=== PATIENT | female | born 1985 | race Caucasian/White ===

== ENCOUNTER 2017-07-30 10:01 | Emergency (ER) | payer MEDICAID ==
--- NOTE | 2017-07-30 10:31 | ER Document Report ---
ED GI/ - General Chief Complaint: OB Problem (<20wks) Stated Complaint: VAGINAL BLEEDING Time Seen by Provider: 07/30/17 10:21 Mode of Arrival: Ambulatory Information source: Patient, [facility] Records Notes: This 31-year-old female patient comes emergency room for vaginal bleeding that started this morning. No clots, initial bleeding was a little dark and then became a light pinkish red. First positive patency test was done on 07/22/2017. Last normal period was on 05/15/2017. She did bleed one day on 06/15/2017. Past history significant for ectopic last year treated with methotrexate. TRAVEL OUTSIDE OF THE [place] IN LAST 30 DAYS: No - Related Data Allergies/Adverse Reactions: No Known Allergies Allergy (Verified 07/30/17 10:20) Past Medical History - General Information source: Patient, [facility] Records - Social History Smoking Status: Current Every Day Smoker Cigarette use (# per day): Yes - 1 PPD Chew tobacco use (# tins/day): No Smoking Education Provided: No Frequency of alcohol use: None Drug Abuse: None Lives with: Family Family History: Reviewed & Not Pertinent Patient has suicidal ideation: No Patient has homicidal ideation: No - Past Medical History Cardiac Medical History: Reports: Hx Hypertension - borderline Renal/ Medical History: Reports: Hx Ectopic , Hx Kidney Stones Past Surgical History: Reports: Other - IVF egg donation x 3 Review of Systems - Review of Systems Constitutional: No symptoms reported EENT: No symptoms reported Cardiovascular: No symptoms reported Respiratory: No symptoms reported Gastrointestinal: No symptoms reported Genitourinary: No symptoms reported Female Genitourinary: See HPI Musculoskeletal: No symptoms reported Skin: No symptoms reported Hematologic/Lymphatic: No symptoms reported Neurological/Psychological: No symptoms reported Physical Exam - Vital signs Vitals: Temp Pulse Resp BP Pulse Ox 99.1 F 92 16 134/78 H 98 07/30/17 10:05 07/30/17 10:05 07/30/17 10:05 07/30/17 10:05 07/30/17 10:05 Interpretation: Normal - General General appearance: Appears well, Alert In distress: None - HEENT Head: Normocephalic, Atraumatic Eyes: Normal Pupils: PERRL - Respiratory Respiratory status: No respiratory distress - Cardiovascular Rhythm: Regular - Abdominal Inspection: Normal Tenderness: Nontender - Back Back: Normal - Extremities General upper extremity: Normal inspection General lower extremity: Normal inspection - Neurological Neuro grossly intact: Yes - Psychological Associated symptoms: Normal affect, Normal mood - Skin Skin Temperature: Warm Skin Moisture: Dry Skin Color: Normal Course - Vital Signs Vital signs: Temp Pulse Resp BP Pulse Ox 99.1 F 92 16 134/78 H 98 07/30/17 10:05 07/30/17 10:05 07/30/17 10:05 07/30/17 10:05 07/30/17 10:05 - Laboratory Result Diagrams: 07/30/17 10:35 07/30/17 10:35 - Diagnostic Test Radiology reviewed: Reports reviewed - Ultrasound shows a 6 week 6 day intrauterine with a heart rate of 115. The left ovary is not seen. There are no abnormalities noted, specifically no subchorionic bleed. Discharge - Discharge Clinical Impression: with 7 completed weeks gestation, Vaginal bleeding during Condition: Stable Disposition: HOME, SELF-CARE Additional Instructions: Bleeding During Early You have been evaluated for passing blood while . While we take this symptom very seriously, most women with your degree of bleeding will go on to have a perfectly normal baby. At this time, there is no indication that a miscarriage will occur. (A miscarriage occurs when the fetus is abnormal. There is no medicine or treatment to prevent it.) A more serious cause of bleeding is tubal . An ultrasound can show whether the is in the uterus or in the tube. Sometimes in early , no fetus is seen. In this case, careful follow-up, including repeat blood tests and repeat ultrasound, is necessary. You should rest in bed until the symptoms have resolved. Do not douche or have sex for at least a week, or until OK'd by the doctor. Don't use tampons. Call the doctor or return for re-examination if there is an increase in bleeding or cramping, extreme weakness, fainting, new abdominal pain, fever, or passage of tissue. Your ultrasound shows an intrauterine measuring 6 weeks 6 days with a heart rate of 115. There were no abnormalities noted. Follow-up with [facility] next week for recheck. RETURN TO THE EMERGENCY ROOM IF ANY NEW OR WORSENING SYMPTOMS. Referrals: [facility] [Provider Group] - Follow up in 3-5 days
[2017-07-30 11:05] LABS: AMORPHOUS SEDIMENT,URINE TRACE /HPF; APPEARANCE,URINE CLOUDY; BILIRUBIN,URINE NEGATIVE (NEGATIVE); COLOR,URINE YELLOW; GLUCOSE, URINE NEGATIVE (NEGATIVE); KETONES,URINE NEGATIVE (NEGATIVE); LEUKOCYTE ESTERASE,URINE NEGATIVE (NEGATIVE); NITRITE,URINE NEGATIVE (NEGATIVE); PROTEIN,URINE NEGATIVE (NEGATIVE); URINE SPECIFIC GRAVITY 1.018; UROBILINOGEN,URINE NEGATIVE mg/dL (<2.0)
[2017-07-30 11:06] LABS: ABSOLUTE EOSINOPHILS # (AUTO) 0.2 10^3/uL (0.0-0.6); ABSOLUTE LYMPHOCYTES (AUTO) 1.8 10^3/uL (0.5-4.7); ABSOLUTE MONOCYTES (AUTO) 0.6 10^3/uL (0.1-1.4); ABSOLUTE NEUT (AUTO) 5.4 10^3/uL (1.7-8.2); BASOPHILS % (AUTO) 0.6 % (0-2); HEMATOCRIT 39.3 % (36.0-47.0); HEMOGLOBIN 13.3 g/dL (12.0-15.5); LYMPHOCYTES % (AUTO) 22.2 % (13-45); MEAN CORPUSCULAR HEMOGLOBIN 29.2 pg (27.0-33.4); MEAN CORPUSCULAR HGB CONC 33.9 g/dL (32.0-36.0); MEAN CORPUSCULAR VOLUME 86 fl (80-97); MONOCYTES % (AUTO) 7.8 % (3-13); PLATELET COUNT 205 10^3/uL (150-450); RED BLOOD COUNT 4.56 10^6/uL (3.72-5.28); RED CELL DISTRIBUTION WIDTH 13.1 % (11.5-14.0); SEGMENTED NEUTROPHILS % (AUTO) 67.4 % (42-78); TOTAL CELLS COUNTED % (AUTO) 100 %
[2017-07-30 11:29] LABS: ALANINE AMINOTRANSFERASE 23 U/L (9-52); ALKALINE PHOSPHATASE 44 U/L (38-126); ANION GAP 11 (5-19); ASPARTATE AMINO TRANSFERASE 15 U/L (14-36); BILIRUBIN,DIRECT 0.2 mg/dL (0.0-0.4); BILIRUBIN,TOTAL 0.3 mg/dL (0.2-1.3); BLOOD UREA NITROGEN 7 mg/dL (7-20); CALCIUM 9.6 mg/dL (8.4-10.2); CARBON DIOXIDE 26 mmol/L (22-30); CHLORIDE 105 mmol/L (98-107); GLUCOSE 98 mg/dL (75-110); POTASSIUM 4.5 mmol/L (3.6-5.0); SODIUM 141.7 mmol/L (137-145); TOTAL PROTEIN 6.9 g/dL (6.3-8.2)
--- NOTE | 2017-07-30 11:54 | RADIOLOGY REPORT (SQ) ---
EXAM DESCRIPTION: U/S OB TRANSVAGINAL W/O DOP COMPLETED DATE/TIME: 07/30/2017 11:44 am REASON FOR STUDY: vag bleed, cramps, PMH ectopic COMPARISON: None. TECHNIQUE: Transvaginal static and realtime grayscale images acquired of the pelvis. Additional alex cted spectral and color Doppler images recorded. All images stored on PACs. bHCG: Pending. CLINICAL DATES: 6 WEEKS 3 DAYS. LIMITATIONS: None. FINDINGS: FETUS: Living intrauterine . ULTRASOUND EGA: 6 weeks 6 days. ULTRASOUND KWAKU: 03/19/2018. CRL: 0.76 cm. FHR: 115 beats per minute. SUBCHORIONIC BLEED: No. SIZE OF BLEED: Not applicable. UTERUS: No masses. No anomalies. CERVICAL LENGTH: 3.4 cm. Closed. RIGHT ADNEXA: Normal ovary with normal vascular flow. No adnexal free fluid. No adnexal masses. LEFT ADNEXA: Ovary not identified. No adnexal free fluid. No adnexal masses. FREE FLUID: None. OTHER: No other significant finding. IMPRESSION: LIVING INTRAUTERINE . EGA 6 WEEKS 6 DAYS. Trimester of : First - 0 to 13 weeks. TECHNICAL DOCUMENTATION: JOB ID: [id number] [employer]- All Rights Reserved rev-08/12 Reading location - IP/workstation name: [email or web address]
[2017-07-30 12:10] VITALS: BP 127/77
== END 2017-07-30 12:13 | disposition home or self-care (01) ==
LOC: ER 10:01
DX: O46.91 Antepartum hemorrhage, unspecified, first trimester (principal); O16.1 Unspecified maternal hypertension, first trimester; Z3A.01 Less than 8 weeks gestation of pregnancy; F17.210 Nicotine dependence, cigarettes, uncomplicated
CPT/HCPCS: 36415; 76817; 80053; 81001; 84702; 85025; 99284

== ENCOUNTER 2018-03-19 18:05 | Outpatient (CLI) | payer MEDICAID ==
[2018-03-19 18:33] LABS: APPEARANCE,URINE CLOUDY; BILIRUBIN,URINE NEGATIVE (NEGATIVE); COLOR,URINE YELLOW; GLUCOSE, URINE 150 mg/dL (NEGATIVE); KETONES,URINE TRACE mg/dL (NEGATIVE); LEUKOCYTE ESTERASE,URINE TRACE (NEGATIVE); NITRITE,URINE NEGATIVE (NEGATIVE); PROTEIN,URINE NEGATIVE (NEGATIVE); URINE SPECIFIC GRAVITY 1.025; UROBILINOGEN,URINE NEGATIVE mg/dL (<2.0)
[2018-03-19 18:49] LABS: URINE AMPHETAMINES SCREEN NEGATIVE; URINE BARBITURATES SCREEN NEGATIVE; URINE BENZODIAZEPINES SCREEN NEGATIVE; URINE COCAINE SCREEN NEGATIVE; URINE MARIJUANA (THC) SCREEN NEGATIVE; URINE METHADONE SCREEN NEGATIVE; URINE PHENCYCLIDINE SCREEN NEGATIVE
--- NOTE | 2018-03-19 19:12 | Non Stress Test Report ---
Non Stress Test Datetime Report Generated by CPN: 03/19/2018 19:12 DEMOGRAPHIC EGA NST: 39.5 INDICATION Indication for Study: Ordered by Provider MONITORING Monitor Explained: Monitor Explained; Test Explained; Patient Verbalized Understanding Time on Monitor: 03/19/2018 18:41 Time off Monitor: 03/19/2018 19:05 NST Duration: 24 NST INTERVENTIONS NST Interventions: None Physician Notified NST: Dr Hernandez BABY A: [id number] BABY A Movement : Present Contraction Frequency : none FHR Baseline : 145 Accelerations : 15X15 Variability : Moderate 6-25bpm NST Review: Meets Criteria for Reactive NST NST Review and Verified By : Maribeth Orourke RN NST Results: Reactive NST REPORT Report Trigger: Send Report
== END 2018-03-19 19:14 | disposition home or self-care (01) ==
LOC: LC 18:05
PROVIDERS: ATTEND Obstetrics & Gynecology Gynecology
PROC: 4A1HXCZ Monitoring of Products of Conception, Cardiac Rate, External Approach (ICD-10-PCS; principal; 2018-03-19)
DX: Z34.90 Encounter for supervision of normal pregnancy, unspecified, unspecified trimester (principal)
CPT/HCPCS: 59025; 80307; 81005; 84112

== ENCOUNTER 2018-03-21 00:04 | Inpatient (IN) | payer MEDICAID ==
[2018-03-21] MEDS ORDERED: LIDOCAINE 1% INJ-PF (10 MG/ML) 30 ML SDV ONE (00:57)
[2018-03-21] MEDS ORDERED: OXYTOCIN/NORMAL SALINE 20 UNIT/1,000 ML RTUINJ ONE (00:57)
[2018-03-21] MEDS ORDERED: MISOPROSTOL 0.2 MG TABLET ONE (00:57)
[2018-03-21 01:00] LABS: APPEARANCE,URINE SLIGHTLY-CLOUDY; BILIRUBIN,URINE NEGATIVE (NEGATIVE); COLOR,URINE YELLOW; GLUCOSE, URINE NEGATIVE (NEGATIVE); KETONES,URINE 80 mg/dL (NEGATIVE); LEUKOCYTE ESTERASE,URINE LARGE (NEGATIVE); NITRITE,URINE NEGATIVE (NEGATIVE); PROTEIN,URINE 30 mg/dL (NEGATIVE); URINE SPECIFIC GRAVITY 1.021; UROBILINOGEN,URINE NEGATIVE mg/dL (<2.0)
[2018-03-21] MEDS ORDERED: RINGERS SOLUTION,LACTATED 1,000 ML IV PRN (01:01)
[2018-03-21 01:16] LABS: URINE AMPHETAMINES SCREEN NEGATIVE; URINE BARBITURATES SCREEN NEGATIVE; URINE BENZODIAZEPINES SCREEN NEGATIVE; URINE COCAINE SCREEN NEGATIVE; URINE MARIJUANA (THC) SCREEN NEGATIVE; URINE METHADONE SCREEN NEGATIVE; URINE PHENCYCLIDINE SCREEN NEGATIVE
[2018-03-21] MEDS ORDERED: ONDANSETRON HCL INJ/PF 4 MG/2 ML SDV ONE (01:18)
[2018-03-21 01:21] LABS: HEMATOCRIT 36.6 % (36.0-47.0); HEMOGLOBIN 12.3 g/dL (12.0-15.5); MEAN CORPUSCULAR HGB CONC 33.6 g/dL (32.0-36.0); MEAN CORPUSCULAR VOLUME 83 fl (80-97); PLATELET COUNT 222 10^3/uL (150-450); RED CELL DISTRIBUTION WIDTH 13.7 % (11.5-14.0); WHITE BLOOD COUNT 27.7 10^3/uL (4.0-10.5)
[2018-03-21 01:46] LABS: ABSOLUTE LYMPHOCYTES# (MANUAL) 1.1 10^3/uL (0.5-4.7); ABSOLUTE MONOCYTES # (MANUAL) 1.9 10^3/uL (0.1-1.4); ABSOLUTE NEUTROPHILS# (MANUAL) 24.7 10^3/uL (1.7-8.2); BASOPHILS % (MANUAL) 0 % (0-2); EOSINOPHILS % (MANUAL) 0 % (0-6); LYMPHOCYTES % (MANUAL) 4 % (13-45); MONOCYTES % (MANUAL) 7 % (3-13); SEGMENTED NEUTROPHILS % (MAN) 89 % (42-78); TOTAL CELLS COUNTED 100
[2018-03-21 01:50] LABS: RBC MORPHOLOGY COMMENT NORMO-CYTIC/CHROMIC
[2018-03-21 01:51] LABS: PLATELET CLUMPS PRESENT; PLATELET COMMENT ADEQUATE
[2018-03-21] MEDS ORDERED: EPHEDRINE SULFATE INJ 50 MG/1 ML AMPULE ONE (03:28)
[2018-03-21] MEDS ORDERED: BUPIVACAINE HCL 0.5 % INJ/PF 30 ML SDV ONE (03:29)
[2018-03-21] MEDS ORDERED: FENTANYL/BUPIVACAINE/NS/PF 300 MCG/150 ML RTUINJ EPI ONE (03:29)
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
[2018-03-21] MEDS ORDERED: MAGNESIUM HYDROXIDE SUSP 30 ML UDCUP PO PRN (06:44)
[2018-03-21] MEDS ORDERED: DIPHENHYDRAMINE HCL 25 MG CAPSULE PO PRN (06:44)
[2018-03-21] MEDS ORDERED: OXYTOCIN IV PRN (06:44)
[2018-03-21] MEDS ORDERED: PROMETHAZINE HCL INJ 25 MG/1 ML VIAL IV PRN (06:44)
[2018-03-21] MEDS ORDERED: DIBUCAINE 1% OINTMENT 28 GM TP PRN (06:44)
[2018-03-21] MEDS ORDERED: PROMETHAZINE HCL 25 MG TABLET PO PRN (06:44)
[2018-03-21] MEDS ORDERED: ACETAMINOPHEN 650 MG SUPP.RECT PR PRN (06:44)
[2018-03-21] MEDS ORDERED: ZOLPIDEM TARTRATE 5 MG TABLET PO PRN (06:44)
[2018-03-21] MEDS ORDERED: MEASLES,MUMPS&RUBELLA VACC/PF 0.5 ML VIAL SUBCUT PRN (06:44)
[2018-03-21] MEDS ORDERED: PROMETHAZINE HCL 25 MG SUPP.RECT PR PRN (06:44)
[2018-03-21] MEDS ORDERED: NA PHOS,M-B/NA PHOS,DI-BA (ADULT) 133 ML ENEMA PR PRN (06:44)
[2018-03-21] MEDS ORDERED: PSEUDOEPHEDRINE HCL 30 MG TABLET PO PRN (06:44)
[2018-03-21] MEDS ORDERED: ACETAMINOPHEN WITH CODEINE #3 TABLET PO PRN (06:44)
[2018-03-21] MEDS ORDERED: GLYCERIN/WITCH HAZEL LEAF 1 EACH MED..PAD TP PRN (06:44)
[2018-03-21] MEDS ORDERED: BENZOCAINE/MENTHOL AEROSOL SPRAY 56 ML TOP PRN (06:44)
[2018-03-21] MEDS ORDERED: NORMAL SALINE IV PRN (06:44)
[2018-03-21] MEDS ORDERED: DIPH/PERTUSS(ACELL)/TETANUS VAC/PF 0.5 ML SYR (>=10YO) IM PRN (06:44)
--- NOTE | 2018-03-21 07:55 | Warning Signs in Babies ---
VOD Warning Signs Datetime Report Generated by [facility]: 03/21/2018 07:55 VOD#[id number] -Warning Signs in Babies: Viewed with Parent(s)/Family (03/19/2018 18:03:Estuardo Meraz RN)
--- NOTE | 2018-03-21 07:56 | Warning Signs in Babies ---
VOD Warning Signs Datetime Report Generated by [facility]: 03/21/2018 07:56 VOD#[id number] -Warning Signs in Babies: Viewed with Parent(s)/Family (03/21/2018 07:54:Estuardo Meraz RN)
--- NOTE | 2018-03-21 09:16 | Delivery Summary ---
Del Sum A-C Datetime Report Generated by CPN: 03/21/2018 09:16 DELIVERY PERSONNEL DELIVERY PERSONNEL: [id number] Delivery Doctor:: Astrid Sheppard MD Labor and Delivery Nurse:: More Gandhi RNsales account associate Nurse:: Christa Ramirez RN Nursery Nurse:: Kathi Craig RN MATERNAL INFORMATION Delivery Anesthesia: Epidural Medications After Delivery: Pitocin Drip 20 Units/1000ml NSS Estimated Blood Loss (ml): 200 Maternal Complications: None Provider Comments: umbilical cord evulsed. manual extraction performed with an en bloc removal. uterine exploration performed with no residual tissue found. LABOR SUMMARY EDC: 03/21/2018 00:00 No. Babies in Womb: 1 Attempted: No Labor Anesthesia: Epidural LABOR INFORMATION Reason for Induction: Not Applicable Complete Dilatation: 03/21/2018 04:57 Oxytocin: Augmentation Group B Beta Strep: negative Antibiotics # of Doses: N/A Antibiotics Time of Last Dose: N/A Name of Antibiotic Given: N/A Steroids Given: None Reason Steroids Not Administered: Not Applicable MEMBRANES Membranes Rupture Method: Spontaneous Rupture of Membranes: 03/20/2018 20:00 Length of Rupture (hr): 10.40 Amniotic Fluid Color: Clear Amniotic Fluid Amount: Moderate Amniotic Fluid Odor: Normal STAGES OF LABOR Stage 2 hr: 1 Stage 2 min: 27 Stage 3 hr: 0 Stage 3 min: 4 VAGINAL DELIVERY Episiotomy: None Laceration #1: None Laceration Extension #1: N/A Laceration Repair: Not Applicable Sponge Count Correct: Yes Sharps Count Correct: Yes CSECTION DELIVERY Primary Indication: N/A Secondary Indication: N/A CSection Incidence: N/A Labor: N/A Elective: N/A CSection Incision: N/A BABY A INFORMATION Infant Delivery Date/Time: 03/21/2018 06:24 Method of Delivery: Vaginal Born in Route : No : N/A Forceps: N/A Vacuum Extraction: N/A Shoulder Dystocia : No PRESENTATION/POSITION BABY A Presentation: Cephalic Cephalic Presentation: Vertex Vertex Position: Left Occipital Anterior Breech Presentation: N/A PLACENTA INFORMATION BABY A Placenta Delivery Time : 03/21/2018 06:28 Placenta Method of Delivery: Manual Removal Placenta Status: Delivered SCORES BABY A Heart Rate 1 min: >100 bpm Resp Effort 1 min: Good Cry Reflex Irritability 1 min: Cough or Sneeze or Pulls Away Muscle Tone 1 min: Active Motion Color 1 min: Blue/Pale SCORE 1 MIN: 8 Heart Rate 5 min: >100 bpm Resp Effort 5 min: Good Cry Reflex Irritability 5 min: Cough or Sneeze or Pulls Away Muscle Tone 5 min: Active Motion Color 5 min: Body [place], Extremities Blue SCORE 5 MIN: 9 INFANT INFORMATION BABY A Gestational Age at Delivery: 40.0 Gestational Status: Full Term- 39- 40.6 Weeks Infant Outcome : Liveborn Infant Condition : Stable Sex: Female IDENTIFICATION BABY A Verification Date/Time: 03/21/2018 06:33 ID Band Number: [id number] Mother's Name Verified: Yes RN Verifying : Angela Gandhi RN, Marina Craig RN WEIGHT/LENGTH BABY A Infant Birthweight (gm): 3450 Infant Weight (lb): 7 Weight (oz): 10 Infant Length (in): 20.50 Length (cm): 52.07 CORD INFORMATION BABY A No. Cord Vessels: 3 Nuchal Cord : N/A Cord Blood Taken: Yes-For Eval (Mom's Blood Type - or O+) Suction: Mouth; Nose ASSESSMENT BABY A Skin to Skin: Yes Transferred To: Remains with Mother BABY B INFORMATION : N/A SIGNATURES Signature: with User ID: [email or web address]
[2018-03-21] MEDS ORDERED: (PENDING PHARMACY ID) (Esomeprazole Magnesium [Nexium 24hr] 20 MG) PO SCH (10:00)
[2018-03-21] MEDS: PRENATAL VITAMIN W DHA CAPSULE PO SCH (10:46)
[2018-03-21] MEDS: SENNOSIDES/DOCUSATE 8.6-50 MG 1 EACH TABLET PO SCH (10:46)
[2018-03-21] MEDS: FAMOTIDINE 20 MG TABLET PO SCH ×2 (10:46→21:50)
[2018-03-21] MEDS: FERROUS SULFATE 325 MG TABLET PO SCH ×2 (10:46→18:50)
[2018-03-21] MEDS: DOCUSATE SODIUM 100 MG CAPSULE PO SCH ×2 (10:47→18:50)
[2018-03-21] MEDS: LANSOPRAZOLE 15 MG TAB.RAP.DR PO SCH (10:54)
[2018-03-21] MEDS: IBUPROFEN 800 MG TABLET PO SCH ×2 (14:51→21:50)
[2018-03-22] MEDS: ACETAMINOPHEN WITH CODEINE #3 TABLET PO PRN ×2 (00:14→18:09)
[2018-03-22] MEDS: IBUPROFEN 800 MG TABLET PO SCH ×2 (06:14→14:16)
[2018-03-22] MEDS: LANSOPRAZOLE 15 MG TAB.RAP.DR PO SCH (06:15)
[2018-03-22 07:29] LABS: HEMATOCRIT 34.1 % (36.0-47.0); HEMOGLOBIN 11.5 g/dL (12.0-15.5); MEAN CORPUSCULAR HEMOGLOBIN 28.4 pg (27.0-33.4); MEAN CORPUSCULAR HGB CONC 33.7 g/dL (32.0-36.0); MEAN CORPUSCULAR VOLUME 84 fl (80-97); PLATELET COUNT 208 10^3/uL (150-450); RED BLOOD COUNT 4.03 10^6/uL (3.72-5.28); RED CELL DISTRIBUTION WIDTH 13.8 % (11.5-14.0); WHITE BLOOD COUNT 19.1 10^3/uL (4.0-10.5)
[2018-03-22 08:05] VITALS: BP 132/81
--- NOTE | 2018-03-22 09:03 | PDOC PROGRESS REPORT ---
Subjective-OB Progress Note for:: 03/22/18 Subjective: Doing well, hsb at BS, they both want to be discharged today, baby doing well, , bonding with baby Physical Exam (OB) Vital Signs: Temp Pulse Resp BP Pulse Ox 97.7 F 55 L 17 132/81 H 98 03/22/18 07:39 03/22/18 07:39 03/22/18 07:39 03/22/18 07:39 03/22/18 07:39 Intake & Output 03/21/18 03/22/18 03/23/18 06:59 06:59 06:59 Intake Total 250 Balance 250 Weight 100.7 kg - PIH/Pre-Eclampsia DTR's: 1 + Clonus: Negative Headache: Absent Epigastric Pain: No Visual Changes: No - Lochia Lochia Amount: Scant < 10 ml Lochia Color: Rubra/Red - Abdomen Description: Tender Hernia Present: No Fundal Description: Firm Fundal Height: u/u - u/2 Objective-Diagnostic Laboratory: 03/22/18 07:06 03/22/18 07:06 WBC 19.1 H RBC 4.03 Hgb 11.5 L Hct 34.1 L MCV 84 MCH 28.4 MCHC 33.7 RDW 13.8 Plt Count 208 Assessment and Plan(PN) - Assessment and Plan (1) Gestational diabetes mellitus Qualifiers: Gestational diabetes mellitus control: oral hypoglycemic-controlled Is this a current diagnosis for this admission?: Yes (2) Normal vaginal delivery Is this a current diagnosis for this admission?: Yes - Time Spent with Patient Time with patient: Less than 15 minutes Medications reviewed and adjusted accordingly: Yes - Disposition Anticipated Discharge: Home Within: within 24 hours
--- NOTE | 2018-03-22 09:09 | PDOC DISCHARGE SUMMARY ---
Final Diagnosis Discharge Date: 03/22/18 - Final Diagnosis (1) Gestational diabetes mellitus Is this a current diagnosis for this admission?: Yes (2) Normal vaginal delivery Is this a current diagnosis for this admission?: Yes Discharge Data - Discharge Medication Home Medications: Esomeprazole Magnesium [Nexium 24Hr] 20 mg PO DAILY 03/19/18 Prenat 115/Iron Fum/Folic/Dss [ 19 Tablet] 1 tab PO DAILY 03/21/18 Gestational Age: 40 Reason(s) for Admission: Onset of Labor Procedures: NST, Ultrasound Intrapartum Procedure(s): Spontaneous Vaginal Delivery Intrapartum Procedure Note: umbilical cord evulsed, manual extraction - [employer] Data Baby 1 Female at 1 minute: 8 at 5 minutes: 9 Weight: 3.459 kg Home with Mother: Yes Complications: No - Diagnosis Test Laboratory: Temp Pulse Resp BP Pulse Ox 97.7 F 55 L 17 132/81 H 98 03/22/18 07:39 03/22/18 07:39 03/22/18 07:39 03/22/18 07:39 03/22/18 07:39 03/21/18 03/21/18 03/22/18 00:12 01:10 07:06 RBC 4.40 4.03 Hgb 12.3 11.5 L Hct 36.6 34.1 L Urine Opiates Screen NEGATIVE - Discharge information/Instructions Discharge Activity: Activity As Tolerated, No Lifting Over 10 Pounds, No Lifting/Push/Pulling, Pelvic Rest Discharge Diet: As Tolerated, Regular Disposition: HOME, SELF-CARE Follow up with: [facility] in: 2, Weeks
[2018-03-22] MEDS: DOCUSATE SODIUM 100 MG CAPSULE PO SCH ×2 (09:35→17:58)
[2018-03-22] MEDS: FAMOTIDINE 20 MG TABLET PO SCH (09:35)
[2018-03-22] MEDS: SENNOSIDES/DOCUSATE 8.6-50 MG 1 EACH TABLET PO SCH (09:35)
[2018-03-22] MEDS: PRENATAL VITAMIN W DHA CAPSULE PO SCH (09:35)
[2018-03-22] MEDS: FERROUS SULFATE 325 MG TABLET PO SCH ×2 (09:35→17:58)
== END 2018-03-22 19:21 | disposition home or self-care (01) | DRG 807 ==
LOC: LC 00:04 → LR 00:53 → 2S 09:04
PROVIDERS: ADMIT Obstetrics & Gynecology; ATTEND Obstetrics & Gynecology
PROC: 10E0XZZ Delivery of Products of Conception, External Approach (ICD-10-PCS; principal; 2018-03-21)
PROC: 4A1HXCZ Monitoring of Products of Conception, Cardiac Rate, External Approach (ICD-10-PCS; 2018-03-21)
DX: O24.425 Gestational diabetes mellitus in childbirth, controlled by oral hypoglycemic drugs (principal); O69.89X0 Labor and delivery complicated by other cord complications, not applicable or unspecified; O26.23 Pregnancy care for patient with recurrent pregnancy loss, third trimester; Z87.891 Personal history of nicotine dependence; Z3A.40 40 weeks gestation of pregnancy; Z37.0 Single live birth
CPT/HCPCS: 36415; 80307; 81005; 84112; 85025; 85027; 86592; 86850; 86900; 86901; J2405; J2590; J3010; J3490